=== PATIENT | female | born 1945 | race Caucasian/White ===

== ENCOUNTER 2016-09-07 03:41 | Emergency (ER) | payer OTHER ==
--- NOTE | 2016-09-07 05:25 | ED CLINICAL REPORT ---
Clinical Report - Physicians/Mid Levels [facility] [address] [place] [address] 09/07/2016 3:42 Patient: GISELE HOOVER Time Seen: 03:45; initial patient contact. Arrived- By private vehicle. Historian- patient. HISTORY OF PRESENT ILLNESS Chief Complaint: DYSPNEA and HISTORY OF CHRONIC OBSTRUCTIVE PULMONARY DISEASE. This started about 3 days ago and is still present. The dyspnea is described as moderate. The patient has had a cough and chills. No sputum production, fever, sweating episodes, wheezing or dyspnea on exertion. No chest pain or discomfort, calf pain, foot swelling or orthopnea. No paroxysmal nocturnal dyspnea, dizziness or palpitations. Similar symptoms previously: None. Recent medical care: Not recently seen/assessed. REVIEW OF SYSTEMS The patient has had a nasal discharge, sinus drainage and a sore throat. No nausea or vomiting. All systems otherwise negative, except as recorded above. PAST HISTORY Pneumonia. COPD - Chronic Obstructive Pulmonary Disease. Hypertension. Gastroesophageal Reflux. Cardiovascular Risk Factors. Right Sided Lung "spot" per pt ADDITIONAL SURGERIES: Carpal Tunnel Surgery. Hysterectomy. Medications: Advair HFA Inhalation. Levothyroxine Sodium Oral. Hydrochlorothiazide Oral. Ventolin HFA Inhalation. Combivent Respimat Inhalation. [place] Nasal [place] Nasal. Vitamin c Oral. K-99 Oral. Glucosamine Complex Oral. Claritin Oral. Estrace Oral. NexIUM Oral. ProAir HFA Inhalation. Allergies: Carbamazepine. Severe Diazepam. Severe Levofloxacin. Moderate Penicillins. Severe Septra. Moderate Sulfa Antibiotics. Moderate. SOCIAL HISTORY Former smoker. ADDITIONAL NOTES The nursing notes have been reviewed with agreement regarding the chief complaint, PMH and patient medications and allergies. PHYSICAL EXAM Vital Signs: 09/07/2016 03:48 BP: 146/68. HR: 87. RR: 20. O2 saturation: 99%. Temp: 98.2 F. Have been reviewed. Hypertensive. Heart rate normal. Respiratory rate normal. Temperature normal. Appearance: Alert. No acute distress. Eyes: Eyes normal inspection. ENT: Moderate generalized pharyngeal erythema. The mucous membranes are not dry. Neck: Normal inspection. No lymphadenopathy. CVS: Normal heart rate and rhythm. Heart sounds normal. Respiratory: No respiratory distress. Breath sounds normal. Skin: Skin warm and dry. Normal skin color. No rash. Extremities: Extremities exhibit normal ROM. No calf tenderness. No lower extremity edema. Neuro: Oriented X 3. No motor deficit. LABS, X-RAYS, AND EKG EKG: EKG time: (0359). No acute process. No acute ischemia. Normal EKG. Normal sinus rhythm. Rate: 82. Normal P waves. Normal JOSE. Normal QRS complex. Normal axis. Normal ST and T waves. Prolonged QTc (462). Prior EKG unavailable. The study has been interpreted contemporaneously by me. The study has been independently viewed by me. The EKG appears to be a good tracing. Interpretation time: 035. Chest X-ray: No acute disease. Small, right-sided hilar mass present. Normal heart size. Mediastinum normal. Great vessels normal. Soft tissues normal. No infiltrate. No fracture. No bony lesion present. Views: PA and lateral. Technique: good. The X-rays were independently viewed by me and interpreted contemporaneously by me. Prior films were not available for comparison. Interpretation time: 05:22. Laboratory Tests: Culture, Strep Screen: (JERRICA: 09/07/2016 04:10) ( MsgRcvd 09/07/2016 04:33) Final results Test Result Flag Units (Reference) RAPID STREP SCREEN - THROAT DATE: 09/07/16 NEGATIVE SCREEN: RAPID STREP SCREEN NEGATIVE; CONFIRMATION TO FOLLOW . PROGRESS AND PROCEDURES Disposition: Discharged home in good and improved condition. Condition: good. CLINICAL IMPRESSION Influenza type A with upper respiratory infection. INSTRUCTIONS Alternate Tylenol (Acetaminophen) or Motrin (Ibuprofen) for fever. Take according to label instructions. Off work today. Your Current Medications: CONTINUE TAKING THE FOLLOWING MEDICATIONS: Advair HFA Inhalation. Claritin Oral. Combivent Respimat Inhalation. Estrace Oral. Glucosamine Complex Oral. Hydrochlorothiazide Oral. K-99 Oral. Levothyroxine Sodium Oral. NexIUM Oral. [place] Nasal [place] Nasal. ProAir HFA Inhalation. Ventolin HFA Inhalation. Vitamin c Oral. Prescription Medications: Tamiflu 75 mg: take 1 capsule orally every 12 hours for 5 days. No refill. Substitution is permissible. Follow-up: Follow up with your doctor in about two days. Call for an appointment. Blood pressure screening was not performed during this visit because the patient has an active diagnosis of hypertension. (Electronically signed by Joel Mack Dr. 09/07/2016 5:27)
--- NOTE | 2016-09-07 05:25 | ED ORDER SUMMARY ---
..... Patient: GISELE HOOVER OrderSheet [facility] VisitID: [id number] [address] [place] [address] 71y, F Registration Date/Time: 09/07/2016 ORDER SHEET Weight: 58.5 kg (stated) Allergies: Carbamazepine, Diazepam, Levofloxacin, Penicillins, Septra, Sulfa Antibiotics GENERAL ORDERS: Rapid Influenza Screen (Nasal Pharyngeal) (...) Urgent (04:16 09/07/2016 Azeem Light) (Ack 4:17 LMuller) (4:17 LMuller) (4:17 KWilliams R.N.) Chest 2V Urgent (04:16 09/07/2016 Azeem Light) (Ack 4:17 LMuller) (4:50 GUnger) Culture, Strep Screen Urgent (04:17 09/07/2016 Azeem Light) (Ack 4:17 LMuller) (4:17 LMuller) (4:17 KWilliams R.N.) MEDICATION ORDERS: Depo-Medrol IM 80 mg (NOW) (04:16 09/07/2016 Azeem Light) (4:26 KWilliams R.N.) IV FLUIDS: ORDER SHEET NOTES: [Electronically signed by Joel Mack Dr. (05:27 09/07/2016)] [Electronically signed by Wang Pierre R.N. (05:38 09/07/2016)] [Electronically locked/signed by Wang Pierre R.N. (05:38 09/07/2016)]
--- NOTE | 2016-09-07 05:25 | ED NURSING NOTES ---
Clinical Report - Nurses [facility] [address] [place] [address] 09/07/2016 3:42 Patient: GISELE HOOVER TRIAGE Triage time 03:43. Acuity: LEVEL 3. Chief Complaint: DIFFICULTY BREATHING. Alert. No acute distress. SEPSIS SCREEN: Heart rate not greater than 90. Respiratory rate not greater than 20. --03:53 Mark Buitrago R.N. 03:48 09/07/16. BP: 146/68. HR: 87. RR: 20. O2 saturation: 99% on room air. Temp: 98.2 F (oral). Pain level now 0/10. --03:53 Mark Buitrago R.N. Weight: 58.5 kg stated. Height/Length: 60 inches Per Patient. BMI: 25.2. --03:49 Mark Buitrago R.N. Medications ProAir HFA Inhalation. --03:50 Mark Buitrago R.N. NexIUM Oral. --03:55 Mark Buitrago R.N. Estrace Oral. --03:55 Mark Buitrago R.N. Claritin Oral. --03:55 Mark Buitrago R.N. Glucosamine Complex Oral. --03:55 Mark Buitrago R.N. K-99 Oral. --03:56 Mark Buitrago R.N. Vitamin c Oral. --03:56 Mark Buitrago R.N. [employer] Nasal [place] Nasal. --03:56 Mark Buitrago R.N. Combivent Respimat Inhalation. --03:57 Mark Buitrago R.N. Ventolin HFA Inhalation. --03:57 Mark Buitrago R.N. Hydrochlorothiazide Oral. --03:57 Mark Buitrago R.N. Levothyroxine Sodium Oral. --03:57 Mark Buitrago R.N. Advair HFA Inhalation. --03:57 Mark Buitrago R.N. Allergies Carbamazepine. Severe Diazepam. Severe Levofloxacin. Moderate Penicillins. Severe Septra. Moderate Sulfa Antibiotics. Moderate --03:51 Mark Buitrago R.N. History Primary physician (terese). ( cough x 3 days, progressively worsening. C/O difficulty breathing and sore throat. Hx COPD.). Treatment HEAVY DUTY TRUCK MECHANIC: (delsym). SOCIAL HX: Former smoker, end date 1989. No alcohol use or drug use. FALL RISK ASSESSMENT: Fall risk assessment completed. No fall risk identified. NUTRITIONAL RISK ASSESSMENT: The nutritional risk assessment revealed no deficiencies. FUNCTIONAL ASSESSMENT: Functional assessment: no impairments noted. LEARNING NEEDS ASSESSMENT: The learning needs assessment revealed no barriers. SKIN INTEGRITY ASSESSMENT: Skin integrity risk assessment completed. No skin integrity risk identified. --03:53 Mark Buitrago R.N. PROBLEMS: Pneumonia. COPD - Chronic Obstructive Pulmonary Disease. Hypertension. Gastroesophageal Reflux. Cardiovascular Risk Factors. --03:53 Mark Buitrago R.N. ADDITIONAL SURGERIES: Carpal Tunnel Surgery. Hysterectomy. --03:53 Mark Buitrago R.N. Interventions ID band on patient. To treatment room. --03:53 Mark Buitrago R.N. PHYSICAL ASSESSMENT 03:53 09/07/16. Ambulatory to room. GENERAL / NEURO / PSYCH: Alert. Oriented X 4. Appears in no acute distress. HEENT: Mucous membranes are pink. RESPIRATORY: Mild respiratory distress. The patient can speak in full sentences. Cough. CVS: Capillary refill less than 2 seconds. GI / : Abdomen soft and nontender. SKIN: Skin is warm and dry. Normal skin turgor. --03:53 Mark Buitrago R.N. NURSING PROGRESS NOTES 03:53 09/07/16. The plan of care for this patient has been created. Patient gowned. Head of bed elevated. Call light placed in reach. Bed placed in lowest position. Brakes of bed on. Patient ready for evaluation- chart flagged. --03:53 Mark Buitrago R.N. EKG time: (0359 AM). EKG was ordered, performed by a tech and shown to the ED physician. --04:01 Latisha Pollock 04:21 09/07/2016 Depo-Medrol IM 40 mg given. Given in the left anterior lateral thigh. Allergies verified and confirmed 5 rights. --04:26 Mark Buitrago R.N. 04:26 09/07/16. BP: 115/57. HR: 85. RR: 17. O2 saturation: 94% on room air. Pain level now 0/10. --04:29 Mark Buitrago R.N. DISPOSITION / DISCHARGE Departure time: 05:37. Condition at departure: improved. No learning barriers present. Discharge instructions provided and reviewed with the patient. Reviewed warnings. Reviewed medication(s). Treatments reviewed. Patient verbalized understanding. Written instructions provided in Uzbek. The patient was discharged by the physician. She was discharged home and accompanied by spouse. She left the Emergency Department ambulatory and via private vehicle. Spouse driving. --05:38 Wang Pierre R.N. 05:36 09/07/16. BP: 139/65. HR: 85. RR: 18. O2 saturation: 100%. Pain level now 0/10. --05:38 Wang Pierre R.N. Locked/Released at 09/07/2016 5:38 by Wang Pierre R.N.
--- NOTE | 2016-09-07 05:25 | ED ORDER SUMMARY ---
..... Patient: GISELE HOOVER OrderSheet [facility] VisitID: [id number] [address] [place] [address] 71y, F Registration Date/Time: 09/07/2016 ORDER SHEET Weight: 58.5 kg (stated) Allergies: Carbamazepine, Diazepam, Levofloxacin, Penicillins, Septra, Sulfa Antibiotics GENERAL ORDERS: Rapid Influenza Screen (Nasal Pharyngeal) (...) Urgent (04:16 09/07/2016 Azeem Light) (Ack 4:17 LMuller) (4:17 LMuller) (4:17 KWilliams R.N.) Chest 2V Urgent (04:16 09/07/2016 Azeem Light) (Ack 4:17 LMuller) (4:50 GUnger) Culture, Strep Screen Urgent (04:17 09/07/2016 Azeem Light) (Ack 4:17 LMuller) (4:17 LMuller) (4:17 KWilliams R.N.) MEDICATION ORDERS: Depo-Medrol IM 80 mg (NOW) (04:16 09/07/2016 Azeem Light) (4:26 KWilliams R.N.) IV FLUIDS: ORDER SHEET NOTES: [Electronically signed by Joel Mack Dr. (05:27 09/07/2016)] [Electronically signed by Wang Pierre R.N. (05:38 09/07/2016)] [Electronically locked/signed by Wang Pierre R.N. (05:38 09/07/2016)]
--- NOTE | 2016-09-07 05:25 | ED NURSING NOTES ---
Clinical Report - Nurses [facility] [address] [place] [address] 09/07/2016 3:42 Patient: GISELE HOOVER TRIAGE Triage time 03:43. Acuity: LEVEL 3. Chief Complaint: DIFFICULTY BREATHING. Alert. No acute distress. SEPSIS SCREEN: Heart rate not greater than 90. Respiratory rate not greater than 20. --03:53 Mark Buitrago R.N. 03:48 09/07/16. BP: 146/68. HR: 87. RR: 20. O2 saturation: 99% on room air. Temp: 98.2 F (oral). Pain level now 0/10. --03:53 Mark Buitrago R.N. Weight: 58.5 kg stated. Height/Length: 60 inches Per Patient. BMI: 25.2. --03:49 Mark Buitrago R.N. Medications ProAir HFA Inhalation. --03:50 Mark Buitrago R.N. NexIUM Oral. --03:55 Mark Buitrago R.N. Estrace Oral. --03:55 Mark Buitrago R.N. Claritin Oral. --03:55 Mark Buitrago R.N. Glucosamine Complex Oral. --03:55 Mark uBitrago R.N. K-99 Oral. --03:56 Mark Buitrago R.N. Vitamin c Oral. --03:56 Mark Buitrago R.N. [place] Nasal [place] Nasal. --03:56 Mark Buitrago R.N. Combivent Respimat Inhalation. --03:57 Mark Buitrago R.N. Ventolin HFA Inhalation. --03:57 Mark Buitrago R.N. Hydrochlorothiazide Oral. --03:57 Mark Buitrago R.N. Levothyroxine Sodium Oral. --03:57 Mark Buitrago R.N. Advair HFA Inhalation. --03:57 Mark Buitrago R.N. Allergies Carbamazepine. Severe Diazepam. Severe Levofloxacin. Moderate Penicillins. Severe Septra. Moderate Sulfa Antibiotics. Moderate --03:51 Mark Buitrago R.N. History Primary physician (terese). ( cough x 3 days, progressively worsening. C/O difficulty breathing and sore throat. Hx COPD.). Treatment PLANT SENIOR MANAGER: (delsym). SOCIAL HX: Former smoker, end date 1989. No alcohol use or drug use. FALL RISK ASSESSMENT: Fall risk assessment completed. No fall risk identified. NUTRITIONAL RISK ASSESSMENT: The nutritional risk assessment revealed no deficiencies. FUNCTIONAL ASSESSMENT: Functional assessment: no impairments noted. LEARNING NEEDS ASSESSMENT: The learning needs assessment revealed no barriers. SKIN INTEGRITY ASSESSMENT: Skin integrity risk assessment completed. No skin integrity risk identified. --03:53 Mark Buitrago R.N. PROBLEMS: Pneumonia. COPD - Chronic Obstructive Pulmonary Disease. Hypertension. Gastroesophageal Reflux. Cardiovascular Risk Factors. --03:53 Mark Buitrago R.N. ADDITIONAL SURGERIES: Carpal Tunnel Surgery. Hysterectomy. --03:53 Mark Buitrago R.N. Interventions ID band on patient. To treatment room. --03:53 Mark Buitrago R.N. PHYSICAL ASSESSMENT 03:53 09/07/16. Ambulatory to room. GENERAL / NEURO / PSYCH: Alert. Oriented X 4. Appears in no acute distress. HEENT: Mucous membranes are pink. RESPIRATORY: Mild respiratory distress. The patient can speak in full sentences. Cough. CVS: Capillary refill less than 2 seconds. GI / : Abdomen soft and nontender. SKIN: Skin is warm and dry. Normal skin turgor. --03:53 Mark Buitrago R.N. NURSING PROGRESS NOTES 03:53 09/07/16. The plan of care for this patient has been created. Patient gowned. Head of bed elevated. Call light placed in reach. Bed placed in lowest position. Brakes of bed on. Patient ready for evaluation- chart flagged. --03:53 Mark Buitrago R.N. EKG time: (0359 AM). EKG was ordered, performed by a tech and shown to the ED physician. --04:01 Latisha Pollock 04:21 09/07/2016 Depo-Medrol IM 40 mg given. Given in the left anterior lateral thigh. Allergies verified and confirmed 5 rights. --04:26 Mark Buitrago R.N. 04:26 09/07/16. BP: 115/57. HR: 85. RR: 17. O2 saturation: 94% on room air. Pain level now 0/10. --04:29 Mark Buitrago R.N. DISPOSITION / DISCHARGE Departure time: 05:37. Condition at departure: improved. No learning barriers present. Discharge instructions provided and reviewed with the patient. Reviewed warnings. Reviewed medication(s). Treatments reviewed. Patient verbalized understanding. Written instructions provided in Danish. The patient was discharged by the physician. She was discharged home and accompanied by spouse. She left the Emergency Department ambulatory and via private vehicle. Spouse driving. --05:38 Wang Pierre R.N. 05:36 09/07/16. BP: 139/65. HR: 85. RR: 18. O2 saturation: 100%. Pain level now 0/10. --05:38 Wang Pierre R.N. Locked/Released at 09/07/2016 5:38 by Wang Pierre R.N.
--- NOTE | 2016-09-07 05:39 | ED DISCHARGE INSTRUCTIONS ---
Patient: GISELE HOOVER General Instructions [facility] VisitID: [id number] [place] [address] 71y, F Registration Date/Time: 09/07/2016 Influenza type A with upper respiratory infection. INSTRUCTIONS Alternate Tylenol (Acetaminophen) or Motrin (Ibuprofen) for fever. Take according to label instructions. Off work today. Your Current Medications: CONTINUE TAKING THE FOLLOWING MEDICATIONS: Advair HFA Inhalation. Claritin Oral. Combivent Respimat Inhalation. Estrace Oral. Glucosamine Complex Oral. Hydrochlorothiazide Oral. K-99 Oral. Levothyroxine Sodium Oral. NexIUM Oral. [place] Nasal [place] Nasal. ProAir HFA Inhalation. Ventolin HFA Inhalation. Vitamin c Oral. Prescription Medications: Tamiflu 75 mg: take 1 capsule orally every 12 hours for 5 days. No refill. Substitution is permissible. Follow-up: Follow up with your doctor in about two days. Call for an appointment. Blood pressure screening was not performed during this visit because the patient has an active diagnosis of hypertension. ADDITIONAL INFORMATION Influenza (Adult) Influenza, also called the flu, is a viral illness that affects the air passages of the lungs. It differs from the common cold. It is highly contagious. It may be spread through the air by coughing and sneezing or by direct contact (touching the sick person and then touching your own eyes, nose or mouth). Illness starts 1-3 days after exposure and lasts for 1-2 weeks. Antibiotics are usually not needed unless a complication appears (ear or sinus infection or pneumonia). Symptoms may be mild or severe and can include extreme tiredness (wanting to stay in bed all day), chills, fevers, muscle aching, soreness with eye movement, headache, and a dry, hacking cough. Home Care: Avoid exposure to cigarette smoke (yours or others). Tylenol or ibuprofen (Advil) will help fever, muscle aching, and headache. To avoid risk of liver injury, aspirin should not be used in children and teenagers under 18 with this illness. Nausea and loss of appetite are common. A light diet is recommended. Avoid dehydration by drinking 6-8 glasses of fluids per day (water, sport drinks like Gatorade, soft drinks without caffeine, juices, tea, soup, etc.). Extra fluids will also help loosen secretions in the nose and lungs. [id number] cold medicines will not shorten the duration of the illness but may be helpful for the following symptoms: cough (Robitussin DM); sore throat (Chloraseptic lozenges or spray); nasal and sinus congestion (Actifed or Sudafed). [NOTE: Do not use decongestants if you have high blood pressure.] Stay home until your fever has been gone for at least 24 hours (without the use of fever-reducing medications such as ibuprofen). Follow Up with your doctor or as directed by our staff if you are not improving over the next week. Note: If you are age 65 or older, or if you have chronic asthma or COPD, we recommend a pneumococcal vaccinationevery five years. All adults shouldreceive a yearly influenza vaccination every . Ask your doctor about this. Get Prompt Medical Attention if any of the following occur: Cough with lots of colored sputum (mucus) or blood in your sputum Chest pain, shortness of breath, wheezing, or difficulty breathing Severe headache, face, neck or ear pain New rash Fever of 100.4F (38C) oral or higher, not better with fever medication Confusion, behavior change or seizure Severe weakness or dizziness Fever Control (Adult) A fever is a natural reaction of the body to an illness. In most cases, the temperature itself is not harmful. It actually helps the body fight infections. A fever does not need to be treated unless you feel very uncomfortable. Home Care If you feel warm, check your temperature. If you feel very uncomfortable and your temperature is at or higher than 100.4F (38C) oral, you may take acetaminophen (Tylenol) every 4 to 6 hours. If you cant take or keep down oral medicine, ask your pharmacist for Tylenol suppositories, which you can get without a prescription. If the fever does not respond to acetaminophen within 1 hour, take ibuprofen (Advil or Motrin). If this works, keep taking the ibuprofen every 6 to 8 hours. Note: If you have chronic liver or kidney disease or ever had a stomach ulcer or GI bleeding, talk with your doctor before using these medications. If either medication alone does not keep the fever down, you may alternate the two medicines every 3 to 4 hours, only if your healthcare provider has instructed you to do so. For example, take Motrin then wait 3 hours, take Tylenol then wait 3 hours, take Motrin, and so on. Follow your healthcare providers instructions exactly. Clothing: Keep clothing light because excess body heat is lost through the skin. The fever will go up if you wear extra layers or wrap in blankets. Fluids: Fever causes the body to lose water through evaporation. Drink plenty of fluids such as water, juice, clear sodas, ter[place], or lemonade. Do not use aspirin in anyone under 18 years of age who is ill with a fever. It can cause severe liver damage. Follow Up with your doctor or as advised by our staff if you do not get better after 48 hours. Get Prompt Medical Attention if any of the following occur: Fever does not get better after taking fever medication Fast or difficult breathing Earache, sinus pain, stiff or painful neck, headache, repeated diarrhea or vomiting You feel unusually irritable, drowsy, or confused A rash appears You feel weak or dizzy, or that you might faint Oseltamivir Phosphate Oral capsule What is this medicine? OSELTAMIVIR (os el THOMAS i vir) is an antiviral medicine. It is used to prevent and to treat some kinds of influenza or the flu. It will not work for colds or other viral infections. How should I use this medicine? Take this medicine by mouth with a glass of water. Follow the directions on the prescription label. Start this medicine at the first sign of flu symptoms. You can take it with or without food. If it upsets your stomach, take it with food. Take your medicine at regular intervals. Do not take your medicine more often than directed. Take all of your medicine as directed even if you think you are better. Do not skip doses or stop your medicine early. Talk to your crew leader/control room operator regarding the use of this medicine in children. While this drug may be prescribed for children as young as 14 days for selected conditions, precautions do apply. What side effects may I notice from receiving this medicine? Side effects that you should report to your doctor or health patient care coordinator as soon as possible: allergic reactions like skin rash, itching or hives, swelling of the face, lips, or tongue anxiety, confusion, unusual behavior breathing problems hallucination, loss of contact with reality redness, blistering, peeling or loosening of the skin, including inside the mouth seizures Side effects that usually do not require medical attention (report to your doctor or health patient care coordinator if they continue or are bothersome): cough diarrhea dizziness headache nausea, vomiting stomach pain What may interact with this medicine? Interactions are not expected. What if I miss a dose? If you miss a dose, take it as soon as you remember. If it is almost time for your next dose (within 2 hours), take only that dose. Do not take double or extra doses. Where should I keep my medicine? Keep out of the reach of children. Store at room temperature between 15 and 30 degrees C (59 and 86 degrees F). Throw away any unused medicine after the expiration date. What should I tell my health care provider before I take this medicine? They need to know if you have any of the following conditions: heart disease immune system problems kidney disease liver disease lung disease an unusual or allergic reaction to oseltamivir, other medicines, foods, dyes, or preservatives or trying to get breast-feeding What should I watch for while using this medicine? Visit your doctor or health patient care coordinator for regular check ups. Tell your doctor if your symptoms do not start to get better or if they get worse. If you have the flu, you may be at an increased risk of developing seizures, confusion, or abnormal behavior. This occurs early in the illness, and more frequently in children and teens. These events are not common, but may result in accidental injury to the patient. Families and caregivers of patients should watch for signs of unusual behavior and contact a doctor or health patient care coordinator right away if the patient shows signs of unusual behavior. This medicine is not a substitute for the flu shot. Talk to your doctor each year about an annual flu shot. You have been given the following additional information: Influenza (Adult) Fever Control (Adult) Oseltamivir Phosphate Oral capsule Off work today. (Electronically signed by Joel Mack Dr. 09/07/2016 5:27)
--- NOTE | 2016-09-07 05:39 | ED MAR SUMMARY ---
..... Medication Administration Record [facility] [address] [place] [address] Patient: GISELE HOOVER Visit ID: [id number] 71y, F Weight: 58.5 kg Height/Length: 60 in BMI: 25.2 ALLERGIES: Carbamazepine, Diazepam, Levofloxacin, Penicillins, Septra, Sulfa Antibiotics Given 04:21 09/07/2016 Mark Buitrago R.N. Medication Administered: DEPO-MEDROL [IM], Dose: 40 mg IM. Medication Ordered: Depo-Medrol IM 80 mg (NOW).
--- NOTE | 2016-09-07 05:39 | ED MED RECONCILIATION SUMMARY ---
Patient: GISELE HOOVER Medication Reconciliation Report [facility] VisitID: [id number] [address] [place] [address] 71y, F Registration Date/Time: 09/07/2016 Weight: 58.5 kg Height/Length: 60 in. BMI: 25.2 ALLERGIES: Carbamazepine, Diazepam, Levofloxacin, Penicillins, Septra, Sulfa Antibiotics The patient's Home Medications are listed below: CONTINUE TAKING THE FOLLOWING MEDICATIONS: Advair HFA Inhalation Claritin Oral Combivent Respimat Inhalation Estrace Oral Glucosamine Complex Oral Hydrochlorothiazide Oral K-99 Oral Levothyroxine Sodium Oral NexIUM Oral [place] Nasal [place] Nasal ProAir HFA Inhalation Ventolin HFA Inhalation Vitamin c Oral The source(s) of the original Home Medication information: Not obtained. The following Medications were given to the patient in the Emergency Department: Depo-Medrol [IM] IM 40 mg, administered: 09/07/2016 4:21:00 AM The following Medications were prescribed to the patient: Tamiflu 75 mg: take 1 capsule orally every 12 hours for 5 days. No refill. Substitution is permissible. -- Joel Mack Dr.
--- NOTE | 2016-09-07 05:39 | ED MED RECONCILIATION SUMMARY ---
Patient: GISELE HOOVER Medication Reconciliation Report [facility] VisitID: [id number] [address] [place] [address] 71y, F Registration Date/Time: 09/07/2016 Weight: 58.5 kg Height/Length: 60 in. BMI: 25.2 ALLERGIES: Carbamazepine, Diazepam, Levofloxacin, Penicillins, Septra, Sulfa Antibiotics The patient's Home Medications are listed below: CONTINUE TAKING THE FOLLOWING MEDICATIONS: Advair HFA Inhalation Claritin Oral Combivent Respimat Inhalation Estrace Oral Glucosamine Complex Oral Hydrochlorothiazide Oral K-99 Oral Levothyroxine Sodium Oral NexIUM Oral [place] Nasal [place] Nasal ProAir HFA Inhalation Ventolin HFA Inhalation Vitamin c Oral The source(s) of the original Home Medication information: Not obtained. The following Medications were given to the patient in the Emergency Department: Depo-Medrol [IM] IM 40 mg, administered: 09/07/2016 4:21:00 AM The following Medications were prescribed to the patient: Tamiflu 75 mg: take 1 capsule orally every 12 hours for 5 days. No refill. Substitution is permissible. -- Joel Mack Dr.
--- NOTE | 2016-09-07 05:39 | ED MAR SUMMARY ---
..... Medication Administration Record [facility] [address] [place] [address] Patient: GISELE HOOVER Visit ID: [id number] 71y, F Weight: 58.5 kg Height/Length: 60 in BMI: 25.2 ALLERGIES: Carbamazepine, Diazepam, Levofloxacin, Penicillins, Septra, Sulfa Antibiotics Given 04:21 09/07/2016 Mark Buitrago R.N. Medication Administered: DEPO-MEDROL [IM], Dose: 40 mg IM. Medication Ordered: Depo-Medrol IM 80 mg (NOW).
--- NOTE | 2016-09-07 07:15 | DIAGNOSTIC IMAGING REPORT ---
PROCEDURE: XR CHEST 2 VIEW INDICATION: SHORTNESS OF BREATH TECHNIQUE: PA and lateral views. COMPARISON: None. FINDINGS: Lungs are clear. Heart and mediastinum are normal. Thorax is normal. IMPRESSION: 1. Negative chest.
== END 2016-09-07 05:30 | disposition home or self-care (01) ==
LOC: ED SRH 03:41
DX: J10.1 Influenza due to other identified influenza virus with other respiratory manifestations (principal); J44.9 Chronic obstructive pulmonary disease, unspecified; I10 Essential (primary) hypertension; Z79.51 Long term (current) use of inhaled steroids; Z79.899 Other long term (current) drug therapy; Z88.0 Allergy status to penicillin; Z88.2 Allergy status to sulfonamides; Z88.8 Allergy status to other drugs, medicaments and biological substances; Z87.891 Personal history of nicotine dependence
CPT/HCPCS: 90154; 90159; 91400

== ENCOUNTER 2017-02-01 10:12 | Outpatient (CLI) | payer OTHER ==
--- NOTE | 2017-02-09 10:09 | DIAGNOSTIC IMAGING REPORT ---
PROCEDURE: CT THORAX WITHOUT CONTRAST INDICATION: PULMONARY NODULE TECHNIQUE: Noncontrast axial images were obtained of the chest with coronal and sagittal reformations. COMPARISON: Chest x-ray 09/07/2016, chest CT from an outside institution 01/27/2016, CT chest abdomen pelvis 06/08/2014 FINDINGS: The thyroid gland is normal. Thoracic aorta is normal caliber with mild atherosclerotic calcification. The great vessels demonstrates normal branching pattern. The central pulmonary arteries are normal caliber. Heart size is normal. No pericardial effusion. Nonenlarged, benign-appearing mediastinal lymph nodes are visible. No adenopathy or mediastinal masses. The esophagus is normal in caliber without hiatal hernia. Minor 1.9 cm patch of ground-glass and linear scar formation in the medial aspect of the right lower lobe. A stable 3 mm nodule along the left major fissure (series 3 image 31) is the nodule previously identified on outside chest CT. Airway is patent and branches normally. All nodules demonstrate ground-glass density. The lungs otherwise demonstrate mild to moderate upper lobe emphysematous changes and mild lower lobe emphysematous change. No pleural effusions or pneumothorax. Osseous structures are intact. The images obtained of the upper abdomen are normal. IMPRESSION: 1. 3 mm stable ground glass nodule along the left major fissure, probably a lymph node. No other nodules. 2. Lung RADS 2, low-dose chest CT follow-up in 1 year is recommended. 3. Moderate emphysema.
== END 2017-02-01 23:00 ==
LOC: CT SRH 10:12
DX: J98.4 Other disorders of lung (principal); J43.9 Emphysema, unspecified

== ENCOUNTER 2017-03-07 10:19 | Outpatient (CLI) | payer OTHER, MEDICARE ==
--- NOTE | 2017-03-07 15:14 | DIAGNOSTIC IMAGING REPORT ---
PROCEDURE: XR BARIUM SWALLOW INDICATION: History of surgery for gastroesophageal reflux. TECHNIQUE: Double contrast study. Fluoroscopy time, 3.9 minutes; 1859.44 mGy. 69 fluoroscopic images (including cine fluoroscopy of the esophagus). COMPARISON: Comparison is made to upper GI on 03/14/2014. FINDINGS: Pharyngoesophagus demonstrates moderate prominence of the cricopharyngeus muscle with moderate narrowing of the proximal esophagus. Status post fundoplication with postoperative appearance. There is moderate to marked narrowing of the gastroesophageal junction (4 mm) with mild delay in emptying of the proximal esophagus. There is no evidence of reflux on this study IMPRESSION: 1. Moderate prominence of the cricopharyngeus muscle with intermittent narrowing of the proximal esophagus (may contribute to symptoms of dysphagia). 2. Status post fundoplication. While there is no evidence of reflux, there is moderate to marked narrowing of the gastroesophageal junction (4 mm) with mild delayed emptying of esophagus. 3. Findings discussed with the patient and called to Dr. Pantoja.
== END 2017-03-07 23:00 ==
LOC: XR SRH 10:19
DX: K22.9 Disease of esophagus, unspecified (principal); Z98.890 Other specified postprocedural states